=== PATIENT | male | born 1990 | race Caucasian/White ===

== ENCOUNTER 2017-09-15 10:05 | Emergency (ER) | payer OTHER ==
[~2017-09-15] VITALS: Ht 182.9 cm; Wt 96.1 kg
[2017-09-15 12:13] LABS: HEMATOCRIT 38.2 % (38.0-50.0); HEMOGLOBIN 13.9 G/DL (12.5-16.6); MCH 32.9 PG (29.0-34.0); MCHC 36.4 G/DL (30.0-36.0); MCV 90.3 FL (86-99); PLATELET COUNT 202 K/uL (156-360); RBC DIS.WIDTH-CV 11.4 % (11.8-14.6); RBC DIS.WIDTH-SD 37.2 % (39-53); RED BLOOD COUNT 4.23 M/uL (4.00-5.50); WHITE BLOOD COUNT 6.4 K/uL (4.1-10.2)
[2017-09-15 12:53] LABS: CHLORIDE 106 MEQ/L (99-109); GFR ESTIMATE (CALCULATED) > 59 mL/min/ (58.99-99999); GLUCOSE 89 mg/dL (70-99); POTASSIUM 3.9 MEQ/L (3.7-5.4); SODIUM 142 MEQ/L (136-147); UREA NITROGEN (BUN) 15 mg/dL (9-23); URIC ACID 8.1 mg/dL (3.1-9.2)
[2017-09-15] MEDS ORDERED: NAPROSYN500 MG PO (13:13)
[2017-09-15 13:27] VITALS: BP 160/110
== END 2017-09-15 13:27 | disposition home or self-care (01) ==
LOC: EME 10:05
PROVIDERS: Physician Assistant
DX: R22.42 Localized swelling, mass and lump, left lower limb (principal)
CPT/HCPCS: 73610; 80048; 84550; 85027; 93971; 99281; 99284